=== PATIENT | male | born 1955 | race Caucasian/White ===

== ENCOUNTER 2019-05-22 16:40 | Emergency (ER) | payer BC, OTHER ==
[~2019-05-22] VITALS: Ht 165.1 cm; Wt 99.8 kg
[2019-05-22 16:55] VITALS: BP_SYST 125
--- NOTE | 2019-05-22 16:55 | NUR ---
Placed in room 6 . Placed on youth nutritional monitor, blood pressure machine and pulse oximeter. To gown for exam. Side rails up. Report given to Jamee.
--- NOTE | 2019-05-22 16:58 | NUR ---
ER at bedside examining patient.
--- NOTE | 2019-05-22 17:07 | NUR ---
Pt arrived to ED awake, alert and oriented, ambulated to bed bed with 6 with complaints of previous injury to left elbow, pt felt �ok� enough to continue workout routine and felt radiating pain from right flank area to groin while working out.
--- NOTE | 2019-05-22 17:15 | NUR ---
Radiology Pt taken off unit to radiology
--- NOTE | 2019-05-22 17:24 | NUR ---
Radiology Pt returned to unit from Radiology
[2019-05-22 17:45] LABS: BASOPHILS # (AUTO) 0.1 K/uL (0.0-0.2); EOSINOPHILS # (AUTO) 0.2 K/uL (0.0-0.4); EOSINOPHILS % (AUTO) 2.7 % (0.0-4.0); HEMATOCRIT 45.7 % (36-54); HEMOGLOBIN 15.4 g/dL (14.0-18.0); LYMPHOCYTES # (AUTO) 1.2 K/uL (1.0-5.5); LYMPHOCYTES % (AUTO) 17.6 % (20.5-51.5); MEAN CORPUSCULAR HEMOGLOBIN 30 pg (27-31); MEAN CORPUSCULAR HGB CONC 34 % (32-36); MEAN CORPUSCULAR VOLUME 89 fL (79.0-98.0); MONOCYTES # (AUTO) 0.6 K/uL (0.0-1.0); MONOCYTES % (AUTO) 9.3 % (1.7-9.3); NEUTROPHILS # (AUTO) 4.7 K/uL (1.8-7.7); NEUTROPHILS % (AUTO) 69.4 % (40.0-70.0); PLATELET COUNT (AUTO) 256 K/uL (130-430); RED BLOOD CELL COUNT(AUTO) 5.13 MIL/uL (4.2-6.2); RED CELL DISTRIBUTION WIDTH 13.5 % (9.0-15.0); WHITE BLOOD COUNT (AUTO) 6.7 K/uL (4.8-10.8)
[2019-05-22 17:58] LABS: CALCIUM 9.2 mg/dL (8.4-11.0); CREATININE 1.07 mg/dL (0.55-1.30); POTASSIUM 4.1 mmol/L (3.5-5.1)
[2019-05-22 18:04] LABS: TOTAL BILIRUBIN 0.4 mg/dL (0.0-1.0)
[2019-05-22 18:05] LABS: PROTHROMBIN TIME 10.4 SECS (9.5-12.5)
--- NOTE | 2019-05-22 19:41 | NUR ---
Patient given written and verbal discharge instructions and verbalizes understanding. ER MD discussed with patient the results and treatment provided. Patient in stable condition. ID arm band removed. Rx of MOTRIN/NORCO given. Patient educated on pain management and to follow up with PMD. Pain Scale 0/10. Opportunity for questions provided and answered. Medication side effect fact sheet provided.
[2019-05-22 19:42] VITALS: BP_SYST 126
== END 2019-05-22 19:42 | disposition home or self-care (01) ==
LOC: SED 16:40
DX: R10.9 Unspecified abdominal pain (principal); I10 Essential (primary) hypertension; Z87.442 Personal history of urinary calculi; Z96.653 Presence of artificial knee joint, bilateral
CPT/HCPCS: 36415; 76870-TC; 80053; 81002; 82150-TC; 83605; 83690-TC; 85025; 85610-TC; 85730-TC; 99284